=== PATIENT | male | born 1945 | race Caucasian/White ===

== ENCOUNTER → 2024-01-10 10:10 | Outpatient (REF) | payer OTHER, SELFPAY | LOC: HWRCS 10:10 | PROVIDERS: ATTENDING PHYSICIAN Nuclear Medicine Nuclear Cardiology; FAMILY PHYSICIAN Internal Medicine Geriatric Medicine | DX: I48.0 Paroxysmal atrial fibrillation (principal) | CPT/HCPCS: 93306 ==

== ENCOUNTER → 2024-05-24 11:03 | Outpatient (REF) | payer OTHER, SELFPAY | LOC: HWRAD 11:03 | PROVIDERS: ATTENDING PHYSICIAN Internal Medicine; FAMILY PHYSICIAN Internal Medicine Geriatric Medicine | DX: R10.32 Left lower quadrant pain (principal) | CPT/HCPCS: 74177; Q9967 ==

== ENCOUNTER → 2024-08-01 11:08 | Outpatient (REF) | payer OTHER, SELFPAY | LOC: HWRCS 11:08 | PROVIDERS: ATTENDING PHYSICIAN Nuclear Medicine Nuclear Cardiology; FAMILY PHYSICIAN Internal Medicine Geriatric Medicine | DX: I10 Essential (primary) hypertension (principal); I48.0 Paroxysmal atrial fibrillation; I50.30 Unspecified diastolic (congestive) heart failure | CPT/HCPCS: 93306 ==

== ENCOUNTER 2024-10-09 06:25 | Day surgery (SDC) | payer OTHER, SELFPAY ==
[2024-10-03 09:11] LABS: Hematocrit 44.9 % (39.0-52.0); Hemoglobin 14.4 g/dL (13.0-18.0); Mean Corp Hgb Conc. 32.1 g/dL (33.0-37.0); Mean Corpuscular Hgb 25.3 pg (27.0-31.0); Mean Corpuscular Volume 78.8 fL (80.0-94.0); Platelet Count 264 10^3/uL (130-400); Red Cell Dist. Width 15.8 % (11.5-14.5)
[2024-10-03 09:45] LABS: Blood Urea Nitrogen 20 mg/dl (9-20); Calcium 9.4 mg/dl (8.4-10.2); Carbon Dioxide 27 mmol/L (22-30); Chloride 105 mmol/L (98-107); Glucose 128 mg/dl (70-99); Potassium 4.6 mmol/L (3.5-5.1); Sodium 143 mmol/L (135-145); eGFR 56.23
[2024-10-03 14:22] VITALS: BMI 31.5
[2024-10-09] VITALS (9 sets, daily range): BP systolic 128–147; BP diastolic 65–88; BMI 31.5
[2024-10-09] MEDS: NEBCIN 480 MG/100 ML ENEMA 1 BOTTLE RECTAL (09:41)
[2024-10-09] MEDS: NORMOSOL-R/PLASMALYTE-A 1000 IV (09:41)
--- NOTE | 2024-10-09 13:37 | PTCARENOTE ---
Patient asking when he should resume his Eliquis. Contacted Dr. Aguillon and he wrote 'in a day or so if no bleeding.' Went over this with patient and he is clear that if he has no bleeding to resume Eliquis tomorrow evening which would be 24 hours.
Patient then said he stopped Eliquis a week ago even though cardiology told him to stop it 2-3 days prior to procedure. Patient stated that he does not want to be on Eliquis. Told patient he must resume Eliquis by tomorrow per MD order if he is not
bleeding. Told patient that if he is still bleeding tomorrow night then he should contact Dr. Aguillon's office for further instruction on Eliquis. Will monitor patient.
== END 2024-10-09 14:10 | disposition home or self-care (01) ==
LOC: SDS 06:25
PROVIDERS: ATTENDING PHYSICIAN Specialist; FAMILY PHYSICIAN Internal Medicine Geriatric Medicine
DX: C61 Malignant neoplasm of prostate (principal); R97.20 Elevated prostate specific antigen [PSA]
CPT/HCPCS: 55700; 36415; 76998; 80048; 85027; 88305; 88344; J1580

== ENCOUNTER → 2024-10-31 12:40 | Outpatient (REF) | payer OTHER, SELFPAY | LOC: MRI 3T 12:40 | PROVIDERS: ATTENDING PHYSICIAN Specialist; FAMILY PHYSICIAN Internal Medicine Geriatric Medicine | DX: C61 Malignant neoplasm of prostate (principal) | CPT/HCPCS: 72197; A9575 ==

== ENCOUNTER 2025-06-20 15:20 | Emergency (ER) | payer OTHER, SELFPAY ==
[2025-06-20] VITALS (10 sets, daily range): BP systolic 122–171; BP diastolic 70–96; PULSE 74–87; BMI 35.5
[2025-06-20 15:38] LABS: Glucose - Point of Care 99 mg/dl (70-99)
[2025-06-20 15:46] LABS: Hematocrit 39.7 % (39.0-52.0); Hemoglobin 12.9 g/dL (13.0-18.0); Mean Corp Hgb Conc. 32.5 g/dL (33.0-37.0); Mean Corpuscular Volume 81.2 fL (80.0-94.0); Nucleated Red Blood Cells % 0 % (-); Platelet Count 285 10^3/uL (130-400); Red Cell Dist. Width 15.0 % (11.5-14.5)
--- NOTE | 2025-06-20 15:47 | CON.NEURO4 ---
Addendum entered and electronically signed by Presley Garcia MD 06/20/25 16:24:
Studies reviewed.
I have personally examined the patient. I reviewed and agree with the CLERK GUIDE's Note.
My addenda:
Awake, alert, interactive. No acute distress.
Speech intact.
Follows 2-step requests w/o difficulty. No tremor.
Extra-ocular movements grossly intact.
Facial movements full and symmetric. Hearing intact to normal conversational volume.
Normal UE movements bilaterally.
Neck: full ROM.
Chest: no dyspnea
Heart: no JVD
Ext: (-) Clubbing, (-) Cyanosis, (-) Edema
IMPRESSIONS/RECOMMENDATIONS:
Abrupt onset of right-sided headache, malaise, visual floaters
Differential diagnosis includes metastatic disease of the brain as well as metabolic challenges leading to symptoms
Check CT head
Check blood work for metabolic challenges
Check orthostatic blood pressures
Continue apixaban
Depending on improvement or lack of improvement, consider MRI of brain
D/W patient / family
All questions answered.
Will continue to follow pending results.
Original Note:
Documented by User: Marylin Edwards NP 06/20/25 16:01
Consultation - Neurology 4
-
CONSULTING PHYSICIAN: Presley Garcia MD
REFERRING PHYSICIAN: ER/Dr. Porter
DICTATED BY: GEORGINA Marques
DATE/TIME OF REQUEST: 06/20/25
DATE/TIME OF CONSULTATION: 06/20/25
Reason for Consultation: Stroke Alert
History of Present Illness:
This is a 80-year-old male who has presented to the hospital with report of right-sided headache, right side heaviness, and visual floaters. Patient has a recent diagnosis of prostate cancer in 2024 and is s/p biopsy, chemo, radiation. His last
dose of Lupron was two days ago. He was in his usual state today when he reports having sudden onset of not feeling well in addition to right head discomfort anterior to his right ear, right sided heaviness, balance difficulty, and seeing floaters.
He is taking apixaban for Afib and has not missed any doses. He is not a candidate for TNK/IAT due to last dose of apixaban in the past [address] head is pending. He denies any history of headaches associated with weakness or visual
changes.
Past Medical History: Afib (apixaban), HTN, prostate cancer s/p biopsy/chemo, COPD, renal calculi, gout
Surgical History: Tonsillectomy, hernia repair
Family History: Reviewed and noncontributory.
Social History: Denies tobacco, alcohol, and illicit drug use.
Allergies: No known allergies
Home Medications: See below.
Review of Symptoms:
Patient denies any fever, chest pain, shortness of breath, GI or symptoms.
�Per the HPI.�All systems are reviewed negative except above.
Physical Exam:
The patient is afebrile, abdomen is nondistended, breathing is unlabored, skin is warm and dry, no edema.
NIH Stroke Scale:
I performed the NIH stroke scale on the patient on 06/20/25 at 1540. The patient scored 0 points on the NIH stroke scale assessment, which were assigned as follows: See below.
Neurologic Examination:
The patient is awake, alert and oriented x 3. He is able to follow commands and answer questions appropriately. There is no aphasia or dysarthria. On cranial nerve assessment, pupils are 3 mm bilateral, round and reactive to light and
accommodation. Visual zeng are full. Extraocular movements are intact. Facial sensations are intact and bilaterally symmetrical, there is no facial asymmetry. Hearing is intact bilaterally to normal conversation volume. Tongue palate and uvula are
midline. Sternocleidomastoid strengths are full bilaterally. Motor strengths are 5/5 bilateral upper and lower extremities on medical research [place] scale. There is no drift or involuntary movement noted. Deep tendon reflexes are 2+ bilateral
upper and lower extremities and Babinski is absent bilaterally. There was no extinction noted on double simultaneous stimulation. Coordination is intact by finger to nose bilaterally.
Lab Results: See below.
Neuro Imaging:
1. CT head 06/20/25: pending
Differentials for the patient's presentation include:
1. R headache, right-sided heaviness, ataxia, and vision changes. Etiology may be a small ischemic stroke versus migraine with aura, less likely metabolic abnormality.
Patient has the following risk factors for their symptoms: Headache
IV Tenecteplase/IAT candidacy: Not a candidate due to apixaban usage in the past 12 hours, NIHSS 0.
Recommendations:
-CT head pending.
-Continue home apixaban.
Discussed patient care with: Dr. Garcia, Dr. Porter, the patient, patient's spouse
Vital Signs and Labs
-
Vital Signs and Labs:
Vital Signs
Temp Pulse Resp BP Pulse Ox
98.4 F 78 20 171/91 96
06/20/25 15:25 06/20/25 15:34 06/20/25 15:34 06/20/25 15:25 06/20/25 15:34
Lab Results
06/20/25 15:38
Medications
-
Home Medications
�Medication �Instructions �Recorded
lorazepam 1 mg tablet 1 mg PO HS PRN sleep/anxiety 12/10/22
multivitamin 1 tab PO DAILY Supplement 12/10/22
levofloxacin 500 mg tablet 500 mg PO DAILY 10/03/24
tamsulosin 0.4 mg capsule 0.4 mg PO DAILY 10/03/24
apixaban 5 mg tablet (Eliquis) 5 mg PO BID 10/09/24
metoprolol succinate 50 mg 50 mg PO DAILY 10/09/24
tablet,extended release 24 hr
NIH Stroke Score
Subsequent NIH Scale
Date of Subsequent NIH Scale: 06/20/25
Time of Subsequent NIH Scale: 15:40
NIH Stroke Score
Level of Consciousness: 0 - Alert
LOC Questions: 0-Answers both correctly
LOC Commands: 0-Performs both correctly
Best Horizontal Gaze: 0-Normal
Visual Zeng: 0=Normal, no visual loss
Facial Palsy: 0=Normal, symmetrical
Motor - Right Arm: 0=No drift 10 seconds
Motor - Left Arm: 0=No drift 10 seconds
Motor - Right Le-No drift 5 seconds
Motor - Left Le-No drift 5 seconds
Limb Ataxia: 0-Absent
Sensation: 0-Normal
Best Language: 0-No aphasia
Dysarthria: 0-Normal
Extinction and Inattention: 0-No abnormality
NIH Total Score:: 0
Modified [place] (mRS) Score
Modified [place] Scale (mRS): No significant disability. Able to carry out usual activities.
Score: 1
Alteplase Contraindication
Inclusion and Exclusion criteria reviewed: Yes
Reasons for NON-Tx with Thrombolytics ABSOLUTE Exclusions: Patient taking oral anticoagulant and last dose within 48 hours
IAT Contraindications: NIHSS < 6

Documented by User: Presley Garcia MD 06/20/25 16:22
NIH Stroke Score
NIH Stroke Score
NIH Total Score:: 0
Modified [place] (mRS) Score
Score: 1
[2025-06-20 15:59] LABS: INR 1.18; PT 15.5 Sec (11.4-14.6)
[2025-06-20 16:00] LABS: APTT 30.3 Sec (23.4-35.0)
[2025-06-20 16:06] LABS: ALT (SGPT) 26 U/L (0-50); AST (SGOT) 24 U/L (17-59); Albumin 4.6 g/dl (3.5-5.0); Alkaline Phosphatase 43 U/L (38-126); Blood Urea Nitrogen 16 mg/dl (9-20); Calcium 8.6 mg/dl (8.4-10.2); Carbon Dioxide 24 mmol/L (22-30); Chloride 109 mmol/L (98-107); Estimated Creatinine Clearance 54 ml/min; Glucose 108 mg/dl (70-99); Potassium 4.2 mmol/L (3.5-5.1); Sodium 140 mmol/L (135-145); Total Protein 7.5 g/dl (6.3-8.2); eGFR > 60.00
--- NOTE | 2025-06-20 16:36 | ED.CVA ---
History of Present Illness
General
Chief Complaint: CVA/TIA Symptoms
Source: patient and spouse
Exam Limitations: none
Time Seen by Provider: 06/20/25 15:28
Nursing documentation reviewed up to this point in time: agreed with
Onset of Stroke Symptoms
Onset of symptoms known: Yes
Date of onset of symptoms: 06/20/25
History of Present Illness
History of Present Illness:
80-year-old male with a past medical history of atrial fibrillation on Eliquis, GERD, prostate cancer who presents to the ER with his for evaluation of headache and dizziness. Patient has been following with Dr. Good for prostate cancer, just
had a shot of Lupron yesterday. This morning woke up with occipital headache at around 10 AM that has been constant all day. He says he has been feeling dizzy with some blurry vision/floaters. He says that he has had feeling of being off balance
and drifting towards the right. brought him into the ER to be evaluated. He has not noticed any numbness in the extremities. There was no loss of vision. He has not noticed any speech issues/slurring of the speech. Denies neck or back
pain. No similar symptoms in the past. He has been in his normal state of health otherwise without any fever, cough recently. No chest pain or shortness of breath. No fall or head trauma reported. No other acute complaints today.
Past History
Past History
ED Past Medical History: HTN and Other (diverticulitis)
ED Past Surgical History: None
Social History
Tobacco: Non-smoker
Alcohol: Occasional
Personal:
Living: with family
Family History
Family History: Other (Noncontributory)
Review of Systems
Review of Systems
All Other Systems: ROS reviewed and negative except as documented in HPI and ROS
Constitutional: Reports fatigue; Denies fever or chills
Respiratory: Denies cough or trouble breathing
Cardiac: Denies chest pain or palpitations
ABD/GI: Denies abdominal pain, nausea or vomiting
: Denies flank pain
Musculoskeletal: Denies neck pain or back pain
Neurological: Reports dizzy, headache and weakness; Denies numbness
Phy Exam
Physical Exam
Physical Exam:
General: Awake, alert, oriented x3; no acute distress
Head: Normocephalic, atraumatic
Eyes: Conjunctiva normal, EOMI, pupils equal round and reactive to light bilaterally
Throat: Airway intact, handling secretions
Neck: Trachea midline, no JVD
Lungs: Clear to auscultation bilaterally, no wheezing, rales, rhonchi
Heart: Regular rate and rhythm, no murmurs, gallops, or rubs appreciated
Abd: Soft, non distended, nontender
Neuro: Cranial nerves intact, speech is fluid, motor and sensory intact in all extremities
Skin: no rash
Extremities: No edema in extremities, equal pulses in all extremities
Scores
NIH Stroke Score
Level of Consciousness: 0 - Alert
LOC Questions: 0-Answers both correctly
LOC Commands: 0-Performs both correctly
Best Horizontal Gaze: 0-Normal
Visual Zeng: 0=Normal, no visual loss
Facial Palsy: 0=Normal, symmetrical
Motor - Right Arm: 0=No drift 10 seconds
Motor - Left Arm: 0=No drift 10 seconds
Motor - Right Le-No drift 5 seconds
Motor - Left Le-No drift 5 seconds
Limb Ataxia: 0-Absent
Sensation: 0-Normal
Best Language: 0-No aphasia
Dysarthria: 0-Normal
Extinction and Inattention: 0-No abnormality
NIH Total Score:: 0
Heart Failure Risk
Heart Failure Risk Score: Not Applicable
Heart Score for Chest Pain Patients
STEMI patient?: Not applicable
Withdrawal Assessment of Alcohol
Withdrawal Assessment Completed?: Not applicable
Course
Orders/Labs/Results
Orders:
Orders
06/20/25 15:28
CT HEAD STROKE ALERT W/o Cont Urgent
Comment:
Reason For Exam: headache, dizzy, R weakness
Bedside Glucose- Treatment ONCE
Cardiac Monitoring- Treatment ONCE
Pulse Ox/cont/shift [RESP] Stat
Quantity: 1
06/20/25 15:29
Electrocardiogram (*1) Stat
Reason for Study: Other
Other Reason for Exam: neuro symptoms
Consult Neurology [NEUROLOGY CONSULT] Urgent
Consulting Provider: Presley Garcia
Was physician already notified: Yes
EKG- Treatment ONCE
06/20/25 15:38
Complete Blood Count/With Diff Urgent
Comprehensive Metabolic Panel Urgent
PTT Urgent
Prothrombin Time Urgent
06/20/25 16:25
Ferritin Routine
Folate Routine
Comment: May add to blood in lab
TSH Reflex To Free T4 Routine
Comment: May add to blood in lab
Vitamin B12 Routine
Comment: May add to blood in lab or draw as routine
Orthostatic Vital Signs As Directed
Orthostatic VS Frequency: BID
Comment: lying flat x 3 mins then check, seated 3 minutes check, stand 3 mins check
Orthostatic Vital Signs As Directed
Orthostatic VS Frequency: Now
Comment: lying flat x 3 mins then check, seated 3 minutes check, stand 3 mins check
06/20/25 17:32
0.9% Sodium Chloride 500 ml [Nss] 500 ml IV BOLUS
06/20/25 17:47
COVID-19 Antigen Urgent
Source: Nasal Swab
Influenza A+B Rapid Molecular Urgent
NETO Source: Nasal Swab
Specimen Description:
Abnormal Lab Results
06/20/25
15:38
Hgb 12.9 L g/dL
(13.0-18.0)
MCH 26.4 L pg
(27.0-31.0)
MCHC 32.5 L g/dL
(33.0-37.0)
RDW 15.0 H %
(11.5-14.5)
MPV 10.5 H fL
(7.4-10.4)
Abs Immat Gran (auto) 0.1 H 10^3/uL
(0-0.05)
Absolute Neuts (auto) 6.8 H 10^3/uL
(1.4-6.5)
Absolute Monos (auto) 0.8 H 10^3/uL
(0.1-0.6)
Immature Gran % 0.6 H %
(0-0.5)
PT 15.5 H Sec
(11.4-14.6)
Chloride 109 H mmol/L
(98-107)
Glucose 108 H mg/dl
(70-99)
06/20/25 15:38
06/20/25 15:38
Vital Signs
Initial and Last Documented VS:
Initial Vital Signs
Temp Pulse Resp BP Pulse Ox
36.9 C 88 18 171/91 98
06/20/25 15:25 06/20/25 15:25 06/20/25 15:25 06/20/25 15:25 06/20/25 15:25
Last Documented Vital Signs
Temp Pulse Resp BP Pulse Ox
36.9 C 72 25 140/89 95
06/20/25 15:25 06/20/25 17:30 06/20/25 17:30 06/20/25 17:30 06/20/25 17:30
MDM/Problems Addressed
Differential Diagnosis Includes:
Dehydration, electrolyte derangement, viral illness, stroke, brain mass/brain bleed
MDM/Problems Addressed:
80-year-old male presents to the ER for evaluation of headache associate with some dizziness and blurry vision, sensation of being off balance. He was seen in triage and a stroke alert was called and was immediately brought back to a room. Was met
at bedside by myself and neurologist, NIH stroke scale 0. Hypertensive but otherwise normal vitals. Clinically very low suspicion that this is a stroke and neurologist agrees; noncontrast CT head negative, hold off on CT angiogram at this point.
Will send labs including a CBC and a CMP, check thyroid studies. Will check an EKG. Will swab for COVID and flu. Monitor and reassess after the above.
Labs reviewed: CBC and CMP unremarkable. COVID and flu swabs negative. EKG shows sinus rhythm. Clinical reassessment after some fluids here patient is feeling a bit better he says his headache has resolved and he still he has some mild floaters in
his vision. Discussed with neuro, cleared for discharge from their perspective. At this point low suspicion for emergent pathology I wonder if there may have been some dehydration contributing to his symptoms. I did notify his oncology team of ER
visit. He feels comfortable with going home this evening that shared decision making we will discharge with outpatient follow-up.
Chronic conditions affecting care:
A-fib on Eliquis
Acute Exacerbation and/or Progression of Chronic Illness:
Acutely hypertensive improved without invention continue to monitor but no emergent antihypertensives indicated at this point
Acute Exacerbation and/or Progression of Chronic Illness: HTN
*Radiology
Radiology exam reviewed: radiology read reviewed
*Pulse Oximetry
SaO2: 95
Oxygen Mode of Delivery: Room air
Patient hypoxic: no (95%)
*EKG
Interpreted by ED Provider?: Yes
Heart Rate: 75
Rate: normal
Rhythm: sinus
[place]: normal axis
Interval: normal interval
QRS Pattern: normal QRS
Ischemia: no ischemia
*Critical Care Note
Total Time (30-74mins, 75-104mins- exclusive of procedures): Not Applicable
Data Reviewed
Review of Other/Old Records Reveals: Labs and Records
Source: patient, records and spouse
Patient Management
Discussion with other providers: Health Actuary (Discussed with neurologist) and Radiologist (Discussed with radiology)
Escalation/DeEscalation of care consider admission/obs:
Considered admission for observation
ED Attending Note
-
Portions of this chart may have been created with voice recognition software.� Occasional wrong word or��sound alike� substitutions may have occurred due to the inherent limitations of voice recognition software.
Discharge Plan
Departure
Patient Disposition: Home (Routine Discharge)
Date of Disposition: 06/20/25
Time of Disposition: 18:33
Patient with high blood pressure during this ER visit?: Yes
Discharge Problem:
Headache, Dizziness
Instructions: Dizziness in adults - ED (DC), Headache in adults - ED (DC)
Prescriptions:
No Action
multivitamin Tablet
1 tab PO DAILY
lorazepam 1 mg tablet
1 mg PO HS PRN (Reason: sleep/anxiety)
Patient Comments:
12/10/2022: last filled 11/01/22, 90 tabs for 90 days from [facility]
tamsulosin 0.4 mg Capsule
0.4 mg PO DAILY
levofloxacin 500 mg Tablet
500 mg PO DAILY
Rx Instructions:
Take day before, morning surgery
metoprolol succinate 50 mg tablet extended release 24 hr
50 mg PO DAILY
Eliquis 5 mg tablet
5 mg PO BID
Referrals:
Kale Good DO [Active, Hematology / Oncology] - Keep scheduled appt
Serge Aguillon MD [Active, Urology] - Keep scheduled appt
Zoltan Briggs MD [Family Provider, Internal Medicine] - Follow up in 5-7 days
Activity Restrictions/Additional Instructions:
Thank you for visiting the Emergency Department at [facility].
1. Please schedule a follow up appointment as directed. Call first thing tomorrow morning to make an appointment.
2. If indicated, please take your medications as instructed and indicated on discharge paperwork.
3. If any of your symptoms do not improve, or persist, or become more severe within 6-12 hours, please return to the emergency department for further care.
4. Please return to the emergency department if you develop a headache, neck pain/stiffness, fever greater than 100.4F, chest pain, shortness of breath, persistent nausea, vomiting, slurred speech, difficulty walking, numbness/tingling, weakness,
signs of infection or any other symptoms that are worrisome to you.
Please call [phone] if you have any questions.
Interventions
Interventions:
*Risk Screen - Suicide Last Done: 06/20/25 15:52
*General Assessment Last Done: 06/20/25 15:50
*Neglect/Abuse Screening Last Done: 06/20/25 15:51
*ED- Fall Risk Assessment Last Done: 06/20/25 15:50
*ED COVID-19 Vaccine History Last Done: 06/20/25 15:50
*ED Influenza Vaccine History Last Done: 06/20/25 15:50
ED- Pulmonary Assessment Last Done: 06/20/25 15:35
ED- Neurological Assessment Last Done: 06/20/25 15:35
ED- Cardiac Assessment Last Done: 06/20/25 15:35
Discharge Date and Time
Print Language: ARMENIAN
[2025-06-20] MEDS: NSS 500 IV (17:47)
[2025-06-20 18:17] LABS: COVID-19 Antigen Negative (Negative)
[2025-06-20 21:24] LABS: Ferritin 119.0 ng/ml (17.9-464.0)
[2025-06-20 21:56] LABS: Folate 8.3 ng/ml (2.76-20); Vitamin B12 527 pg/ml (239-931)
== END 2025-06-20 19:13 | disposition home or self-care (01) ==
LOC: EMR 15:20
PROVIDERS: CONSULT PHYSICIAN Psychiatry & Neurology Neurology; EMERGENCY PHYSICIAN Emergency Medicine; FAMILY PHYSICIAN Internal Medicine Geriatric Medicine
DX: R51.9 Headache, unspecified (principal); R42 Dizziness and giddiness; I48.91 Unspecified atrial fibrillation; I10 Essential (primary) hypertension; J44.9 Chronic obstructive pulmonary disease, unspecified; M10.9 Gout, unspecified; R29.700 NIHSS score 0; Z79.01 Long term (current) use of anticoagulants; Z87.442 Personal history of urinary calculi; Z90.89 Acquired absence of other organs
CPT/HCPCS: 99284; 96360; 70450; 80053; 82607; 82728; 82746; 82962; 84443; 85025; 85610; 85730; 87502; 87811; 93005

== ENCOUNTER → 2025-08-27 12:44 | Outpatient (REF) | payer OTHER, SELFPAY | LOC: HWRCS 12:44 | PROVIDERS: ATTENDING PHYSICIAN Nuclear Medicine Nuclear Cardiology; FAMILY PHYSICIAN Internal Medicine Geriatric Medicine | DX: I34.0 Nonrheumatic mitral (valve) insufficiency (principal); I35.0 Nonrheumatic aortic (valve) stenosis | CPT/HCPCS: 93306 ==